=== PATIENT | male | born 1985 ===

== ENCOUNTER 2017-10-29 13:27 | Emergency (ER) | payer SELFPAY ==
[2017-10-29 13:58] VITALS: BP 140/83
--- NOTE | 2017-10-29 14:33 | UC ---
General HPI - HPI Summary HPI Summary: Pt presents with bodily fluid exposure approx 30 minutes prior to his arrival to . He works as a police inspector. He tells me that he was engaging with an individual of concern while working today. The subject became angry and agitated and spit into his face. Pt says that his saliva got into his eyes and some into his mouth. He immediately wiped it off and rinsed his face off with water. He is concerned that the individual may have "diseases" as he is a known drug abuser. He would like testing today. Pt is UTD on all vaccinations. Pt is asymptomatic at this time and has no current complaints. - History of Current Complaint Chief Complaint: UCBodyFluidExposure Stated Complaint: SPIT IN FACE BY HUMAN Time Seen by Provider: 10/29/17 14:22 Hx Obtained From: Patient Onset/Duration: Sudden Onset Pain Intensity: 0 - Allergy/Home Medications Allergies/Adverse Reactions: Allergies Allergy/AdvReac Type Severity Reaction Status Date / Time Latex Allergy SENSITIVITY Verified 10/29/17 13:53 Home Medications: Home Medications NK [No Home Medications Reported] 10/29/17 [History Confirmed 10/29/17] PMH/Surg Hx/FS Hx/Imm Hx Previously Healthy: Yes - Surgical History Surgical History: Yes Surgery Procedure, Year, and Place: EYES - LASIX - Family History Known Family History: Positive: None - Social History Occupation: Employed Full-time Lives: With Family Alcohol Use: Occasionally Substance Use Type: None Smoking Status (MU): Never Smoked Tobacco Review of Systems Constitutional: Negative Skin: Other - Bodily fluid exposure Eyes: Other - Bodily fluid exposure ENT: Negative Respiratory: Negative Cardiovascular: Negative Gastrointestinal: Negative Neurovascular: Negative Musculoskeletal: Negative Neurological: Negative Psychological: Negative All Other Systems Reviewed And Are Negative: Yes Physical Exam Triage Information Reviewed: Yes Appearance: Well-Appearing, No Pain Distress, Well-Nourished Vital Signs: Initial Vital Signs Temp 98.7 F 10/29/17 13:53 Pulse 79 10/29/17 13:53 Resp 18 10/29/17 13:53 BP 140/83 10/29/17 13:53 Pulse Ox 100 10/29/17 13:53 Vital Signs Reviewed: Yes Eyes: Positive: Conjunctiva Clear, Other: - Vision 20/20 OS/OD/OU. Negative: Conjunctiva Inflamed, Discharge ENT: Positive: Pharynx normal, Uvula midline. Negative: Pharyngeal erythema, Tonsillar swelling, Tonsillar exudate, Muffled voice, Hoarse voice Dental: Negative: Percussion Tenderness @, Gross Decay/Caries @, Dental Fracture @, Abscess @, Cellulitis @, Bleeding Neck: Positive: Supple, Nontender, No Lymphadenopathy Respiratory: Positive: Lungs clear, Normal breath sounds, No respiratory distress, No accessory muscle use Cardiovascular: Positive: RRR, No Murmur, Pulses Normal Neurological: Positive: Alert Psychological: Positive: Age Appropriate Behavior Skin: Negative: rashes, breakdown, significant lesion(s) Course/Dx - Course Course Of Treatment: Bodily fluid exposure. I informed the patient that risk of disease transmission via saliva in this manner is extremely unlikely and that HIV is not known to be transmitted this way. He declined PEP. We will still draw for Hep panel and HIV and have him f/u with infectious disease - Differential Dx - Multi-Symptom Provider Diagnoses: Bodily fluid exposure - saliva Discharge - Discharge Plan Condition: Stable Disposition: HOME Patient Education Materials: Body Substance Exposure (ED) Referrals: No Primary Care Phys,NOPCP [Primary Care Provider] - Phong BA,Ruddy Stein [Medical Doctor] - As Soon As Possible Additional Instructions: If you develop a fever, shortness of breath, chest pain, new or worsening symptoms - please call your PCP or go to the ED. Your blood pressure was slightly elevated at todays visit. Please see your primary provider within 4 weeks for recheck and re-evaluation. 1) Please call Dr. Darling's office at the number below to schedule a follow up appointment for your body fluid exposure.
== END 2017-10-29 14:55 | disposition home or self-care (01) ==
LOC: UCEAST 13:27
DX: Z77.21 Contact with and (suspected) exposure to potentially hazardous body fluids (principal)
CPT/HCPCS: 36415; 80074; 86703; 99211; G0463

== ENCOUNTER 2018-03-17 15:56 | Emergency (ER) | payer BC, OTHER ==
[2018-03-17 16:32] VITALS: BP 123/77
--- NOTE | 2018-03-17 17:39 | RAD ---
INDICATION: Left hand injury. TECHNIQUE: 4 views of the left hand were obtained. FINDINGS: The bones are in normal alignment. No fracture is seen. Joint spaces appear maintained. IMPRESSION: NO EVIDENCE FOR FRACTURE, IF THE PATIENT'S SYMPTOMS PERSIST RECOMMEND FOLLOW-UP IMAGING
--- NOTE | 2018-03-17 17:53 | UC ---
Tacos Boogie Rebecca, scribed for Chantel Espinosa MD on 03/17/18 at 1712 . Upper Extremity HPI - HPI Summary HPI Summary: Pt is a 32 y/o M who presents to [facility] c/o L hand pain and swelling s/p injury. Yesterday, he was trying to grab a roll of weather guard from a shelf on [facility]. States that he wasn't paying attention to how long the roll was and it fell on his left hand. On triage, associated pain was mild, ranked 3/10 and on examination, he denies any pain. Describes the pain as "like a really bad bruise." Has not taken any medication for pain and the pain does not prevent him from doing any activities. Sx aggravated by squeezing the hand, alleviated by nothing. Denies any wrist or elbow pain, numbness, tingling. Right hand dominant. Reports he is currently on vacation from work, returning in 5 days, and feels as though this injury will not prevent him from doing his job. 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 Pt's medications reviewed this visit - History of Current Complaint Chief Complaint: UCUpperExtremity Stated Complaint: LEFT HAND INJURY Time Seen by Provider: 03/17/18 16:59 Hx Obtained From: Patient Onset/Duration: Lasting Days - Yesterday, Still Present Severity Initially: Mild - 3/10 on triage Severity Currently: None Pain Intensity: 3 - On triage, now 0/10 Pain Scale Used: 0-10 Numeric Location Of Pain: Is Discrete @ - Left hand Aggravating Factor(s): Other - Squeezing Alleviating Factor(s): Nothing Associated Signs And Symptoms: Positive: Swelling Related History: Dominant Hand Right - Allergies/Home Medications Allergies/Adverse Reactions: Allergies Allergy/AdvReac Type Severity Reaction Status Date / Time latex Allergy See Comment Verified 03/17/18 16:33 PMH/Surg Hx/FS Hx/Imm Hx - Additional Past Medical History Additional PMH: NEGATIVE PMHx: HTN, DM, CA Previously Healthy: Yes - Surgical History Surgical History: Yes Surgery Procedure, Year, and Place: EYES - LASIX - Family History Known Family History: Negative: Cardiac Disease, Hypertension, Diabetes - Social History Occupation: Employed Full-time - Natural Gas Engineer Lives: With Family Alcohol Use: Occasionally Substance Use Type: None Smoking Status (MU): Never Smoked Tobacco Review of Systems Constitutional: Negative Skin: Other - L hand swelling Eyes: Negative ENT: Negative Respiratory: Negative Cardiovascular: Negative Gastrointestinal: Negative Genitourinary: Negative Motor: Negative Neurovascular: Negative Musculoskeletal: Other: - L hand pain Neurological: Negative Psychological: Negative All Other Systems Reviewed And Are Negative: Yes - Comments Additional Review of Systems Comments: NEGATIVE: Elbow and wrist pain, numbness, tingling Physical Exam - Summary Physical Exam Summary: Vital Signs Reviewed: Yes A+Ox3, no distress Eyes: Conjunctiva Clear ENT: Hearing grossly normal neck: supple Respiratory: Positive: No respiratory distress, No accessory muscle use Cardiovascular: skin color reflect adequate perfusion Musculoskeletal Exam: LUE + flex/ext elbow, + pronate/supinate + flex/ext wrist no snuffbox pain no pain along carpals. MT, phalanges Neurological: Positive: Alert, ambulatory without difficulty 5/5 grasp, thumb up, finger cross, finger spread No laxity or pain with laterl joint testing all digits Psychological: Positive: Normal Response To Family Skin: Positive: no rash, mild ecchymosis and edema dosrum lateral aspect left hand Triage Information Reviewed: Yes Vital Signs: Initial Vital Signs Temp 98.3 F 03/17/18 16:30 Pulse 64 03/17/18 16:30 Resp 18 03/17/18 16:30 BP 123/77 03/17/18 16:30 Pulse Ox 100 03/17/18 16:30 Diagnostics - Radiology Hand XR Xray Interpretation: No Acute Changes - NO EVIDENCE FOR FRACTURE, IF THE PATIENT 'S SYMPTOMS PERSIST RECOMMEND FOLLOW-UP IMAGING Dr. Espinosa reviewed this report. Radiology Interpretation Completed By: Radiologist Upper Extremity Course/Dx - Course Course Of Treatment: Patient medications reviewed this visit. Pt with mild edema and ecchymosis left dorsum hadn s/p injury. pt with normal ROM, csm minimal pain. imaging neg fx. tx contusion. splint. motrin/apap. elevate. return precautions - Differential Dx/Diagnosis Provider Diagnoses: left hand contusion Discharge - Sign-Out/Discharge Documenting (check all that apply): Discharge/Admit/Transfer - Discharge - Discharge Plan Condition: Stable Disposition: HOME Patient Education Materials: Contusion in Adults (ED) Referrals: [facility] [Provider Group] [facility] [Provider Group] No Primary Care Phys,NOPCP [Primary Care Provider] - Additional Instructions: -wear splint comfort and support. -apply ice (20 min at a time) every 2-3 hours for the next 2 days --Okay to alternate ibuprofen (Advil, Motrin) and Tylenol every 3 hours for pain. Take with food. Do NOT take for more than 4-5 days. - elevate your hand above the level of your chest to help with swelling and pain Call your primary care physician or the sports medicine clinic tomorrow to set up a follow up appointment for Thursday. If you pain is resolving okay to cancel this appointment - Billing Disposition and Condition Condition: STABLE Disposition: Home The documentation as recorded by the Tacos noriega Rebecca accurately reflects the service I personally performed and the decisions made by me, Chantel Espinosa MD.
== END 2018-03-17 18:12 | disposition home or self-care (01) ==
LOC: UCEAST 15:56
DX: S60.222A Contusion of left hand, initial encounter (principal); W22.8XXA Striking against or struck by other objects, initial encounter; Y92.512 Supermarket, store or market as the place of occurrence of the external cause; Z91.040 Latex allergy status
CPT/HCPCS: 99212; G0463

== ENCOUNTER 2019-04-12 14:43 | Emergency (ER) | payer BC, OTHER ==
[2019-04-12 14:59] VITALS: BP 120/70
--- NOTE | 2019-04-12 15:40 | UC ---
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 Pt is able to bear weight, but pain is sharp for long standing or walking. Pain is 4/10. Pt deneis numbness or tingling sensation over the RT knee or leg. Pt has not taken anything for pain. Pt denies previous injury, fever, calf pain, SOB, chest pain, abdominal pain, N/ V/d. - History of Current Complaint Chief Complaint: UCLowerExtremity Stated Complaint: RT KNEE PAIN Time Seen by Provider: 04/12/19 15:32 Hx Obtained From: Patient Onset/Duration: Sudden Onset, Lasting Hours - 5 hrs, Still Present Severity Initially: Severe Severity Currently: Moderate Pain Intensity: 4 Pain Scale Used: 0-10 Numeric Character: Sharp, Burning Aggravating Factor(s): Movement, Prolonged Standing, Stairs Alleviating Factor(s): Rest Associated Signs And Symptoms: Positive: Swelling - mild on the medial aspect. Negative: Bruising, Fever, Weakness, Numbness Able to Bear Weight: Yes - Risk Factors Septic Arthritis Risk Factor: Negative Gout Risk Factor: Negative - Allergies/Home Medications Allergies/Adverse Reactions: Allergies Allergy/AdvReac Type Severity Reaction Status Date / Time latex Allergy See Comment Verified 04/12/19 14:59 PMH/Surg Hx/FS Hx/Imm Hx Respiratory History: Pneumonia - Surgical History Surgical History: Yes Surgery Procedure, Year, and Place: EYES - LASIX - Family History Known Family History: Negative: Cardiac Disease, Hypertension, Diabetes Family History: Prostate cancer - Social History Occupation: Employed Full-time Lives: With Family Alcohol Use: Occasionally Substance Use Type: None Smoking Status (MU): Never Smoked Tobacco Review of Systems All Other Systems Reviewed And Are Negative: Yes Constitutional: Positive: Negative Skin: Positive: Negative Eyes: Positive: Negative ENT: Positive: Negative Respiratory: Positive: Negative Cardiovascular: Positive: Negative Gastrointestinal: Positive: Negative Genitourinary: Positive: Negative Motor: Positive: Negative Neurovascular: Positive: Negative Musculoskeletal: Positive: Decreased ROM - RT knee, Other: - RT knee pain w/ mild swelling around medial aspect Neurological: Positive: Negative Psychological: Positive: Negative Is Patient Immunocompromised?: No Physical Exam - Summary Physical Exam Summary: Vital Signs Reviewed: Yes General: well developed, well nourished male sitting in the examining table w/o any apparent distress Eyes: Positive: Conjunctiva Clear - PERRLA, EOMI, fundi grossly normal ENT: Positive: Normal ENT inspection, Hearing grossly normal, Pharynx normal, TMs normal Neck: Positive: Supple, Nontender, No Lymphadenopathy Respiratory: Positive: Chest nontender, Lungs clear, Normal breath sounds, No respiratory distress Cardiovascular: Positive: RRR, No Murmur, Pulses Normal, Brisk Capillary Refill Abdomen Description: Positive: Nontender, No Organomegaly, Soft. Negative: CVA Tenderness (R), CVA Tenderness (L) Bowel Sounds: Positive: Present Musculoskeletal: Positive: Strength Intact, No Edema, RT Knee: Pt is able to bear weight and ambulate with limping. No surface trauma, soft tissue swelling , or obvious effusion. No overlying erythema or warmth. The R knee is without obvious asymmetry or deformity when compared with the L knee. Decreased ROM of RT knee due to pain. mild tenderness to palpation of the patella, no effusion or ballottement. No tenderness over the infrapatellar tendon. Point tenderness over the medial joint line, No tenderness over the medial or lateral tibial plateaus. No tenderness over the proximal fibular head, No tenderness, fullness or mass of the popliteal fossa. No quadriceps tenderness. No laxity of the ACL. PCL, MCL, or LCL. no collateral ligament laxity to valgus or varus stress. Negative Rossy/Drawer sign. Negative Juan David. Distal motor and neurovascular status intact. 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 Pt is able to bear weight, but pain is sharp for long standing or walking. Pain is 4/10. Pt deneis numbness or tingling sensation over the RT knee or leg. Pt has not taken anything for pain. Pt denies previous injury, fever, calf pain, SOB, chest pain, abdominal pain, N/ V/d. Hx obtained. Rt knee X-ray ordered, Impression: Soft tissue swelling, no acute fracture observed as per radiologist . Pt most likely with a RT knee Sprain. Pt knee immobilized with ATIYA bandage and advised to use the crutches he has at home to avoid too much weight bearing. Pt given Ibuprofen PO by the nurse to alleviate symptoms. and mother advised to continue w/ Ibuprofen PO for pain. Pt advised RICE, take medication for pain and to f/u with her Orthopedic DR Mercado in 1 week if not improvement of symptoms for further treatment. D/C instructions explained. Mother and Pt understood and agreed and left the clinic ambulating. - Differential Dx/Diagnosis Differential Diagnosis/HQI/PQRI: Abrasion, Contusion, Dislocation, Fracture ( Closed) Provider Diagnosis: Right knee sprain, Right knee injury Discharge - Sign-Out/Discharge Documenting (check all that apply): Patient Departure - d/c home All imaging exams completed and their final reports reviewed: No Studies - Discharge Plan Condition: Stable Disposition: HOME Prescriptions: Ibuprofen TAB* [Motrin TAB* 800 MG] 800 mg PO Q6H PRN #30 tab PRN Reason: Pain Patient Education Materials: Knee Sprain (ED) Forms: *Work Release Referrals: [facility] [Outside] - 1 Week [facility] [Provider Group] - 3 Days Conrado Johnson MD [Medical Doctor] - 3 Days Additional Instructions: 1-Please take Ibuprofen PO q6-8hrs medications as directed to alleviate pain and swelling. 2-Please apply ice, keep your knee immobilized with the Knee immobilizer. Avoid strenuous exercise or standing for long periods of time. 3- Please f/u with Orthopedic from [facility] or DR Johnson who specialize inf work injuries in 3 days further evaluation and treatment on your knee sprain. - Billing Disposition and Condition Condition: STABLE Disposition: Home
== END 2019-04-12 16:10 | disposition home or self-care (01) ==
LOC: UCEAST 14:43
DX: S83.91XA Sprain of unspecified site of right knee, initial encounter (principal); Z91.040 Latex allergy status; W22.8XXA Striking against or struck by other objects, initial encounter; Y92.9 Unspecified place or not applicable
CPT/HCPCS: 99213; G0463